=== PATIENT | male | born 1940 | race Caucasian/White ===

== ENCOUNTER 2017-01-23 12:03 | Emergency (ER) | payer MEDICARE, BC ==
--- NOTE | ~2017-01-23 | CR282 ---
[facility]. [facility] A Service of [facility] & [facility] RADIOLOGY TEXT RESULTS PATIENT: DERRICK STOVALL LOCATION: SED : 38 UNIT #: [id number] AGE: [address]: ELVIN HANEY SEX: M ORDER DR: [id number] [place] [id number] E MR#: [id number] Acc #: [id number] NAME: DERRICK STOVALL : 1940 SEX: M STUDY DATE/TIME: 01/23/2017 13:02 UNIT: SED ROOM: STUDY DESCRIPTION: CR Wrist Min 3 View Rt Attending Physician: Elvin Haney Ordering Physician: Mendel Sherman M.D. Primary Care Physician: Alma Mae A.P.R.N. MEDICAL IMAGING REPORT This report is preliminary unless electronic signature is present. EXAM Lower right wrist 3 views HISTORY Wrist pain and swelling, hit wrist on container today. FINDINGS Three views of the right wrist demonstrates a soft tissue swelling about the wrist. Moderately advanced radiocarpal joint osteoarthritis. Arthritic change also seen at the scaphotrapezial joint and first CMC joint. No gross malalignment. No acute fracture. IMPRESSION No definite acute fracture or dislocation. Patient demonstrates moderate arthritic changes of the radiocarpal joint and also at the scaphotrapezial joint and first CMC joint. There is associated soft tissue swelling. Dictated by... Bryson Gotti M.D. THIS IS AN ELECTRONICALLY VERIFIED REPORT Bryson Gotti M.D. at 01/24/2017 1:32 PM Kimberly TD: 01/23/2017 22:30 JOB #: [id number] MEDICAL IMAGING REPORT Page 1 of 1
[~2017-01-23 12:03] MED LIST: ALBUTEROL17 GM INH; AMIODARONE PO; AMOXICILLIN500 M1 PO; ASPIRIN EC81 M1 PO; AZITHROMYCIN250 MG PO; BENZONATATE PO; COUMADIN PO; COUMADIN1 MG PO; CRESTOR10 MG PO; DIFLUCAN PO; HYCODAN; HYCODAN COUGH PO; KEFLEX PO; LORTAB 7.5-5001 TAB PO; LOVENOX SUBQ; MEDROL4 MG/DOSE- PO; PACERONE PO; PANTOPRAZOLE SO40 MG PO; PENICILLIN PO; SYNTHROID PO; SYNTHROID75 MCG PO
== END 2017-01-23 15:24 | disposition home or self-care (01) ==
LOC: SED 12:03
DX: S60.211A Contusion of right wrist, initial encounter (principal); I10 Essential (primary) hypertension; Z79.01 Long term (current) use of anticoagulants; Z79.899 Other long term (current) drug therapy; W22.8XXA Striking against or struck by other objects, initial encounter; Y92.009 Unspecified place in unspecified non-institutional (private) residence as the place of occurrence of the external cause
CPT/HCPCS: 29280; 73110; 99283